=== PATIENT | female | born 1955 | race Caucasian/White ===

== ENCOUNTER 2017-08-26 07:06 | Day surgery (SDC) | payer OTHER ==
[~2017-08-26 07:06] MED LIST: EPHEDrine SULFATE 50 MG/5 ML SYG; SUCCINYLCHOLINE CHLORIDE 100 MG/5 ML SYG IV
[2017-08-26] MEDS ORDERED: BUPIVACAINE 0.75% (MPF) 10 ML INJ (07:55)
[2017-08-26] MEDS ORDERED: LIDOCAINE 1% (MPF) 10 ML INJ (07:56)
[2017-08-26] MEDS ORDERED: EPINEPHrine 1 MG INJ (07:56)
[2017-08-26] MEDS ORDERED: LIDOCAINE 2% (SDV) 5 ML INJ (07:56)
[2017-08-26] MEDS ORDERED: TIMOLOL 0.5% 5 ML OPH (07:56)
[2017-08-26] MEDS: MOXIFLOXACIN 0.5% 3 ML OPH OPER (08:05)
[2017-08-26] MEDS: PHENYLephrine 10% 5 ML OPH OPER (08:06)
[2017-08-26] MEDS: NEPAFENAC 0.1% 3 ML OPH OPER (08:06)
[2017-08-26] MEDS: CYCLOPENTOLATE 2% 2 ML OPH OPER (08:06)
[2017-08-26] MEDS ORDERED: SODIUM BICARBONATE (IV ADD) 50 ML (08:18)
[2017-08-26] MEDS ORDERED: MIDAZOLAM 1 MG/ML 2 ML INJ (09:11)
[2017-08-26] MEDS ORDERED: PROPOFOL 20 ML (09:11)
[2017-08-26] MEDS ORDERED: LIDOCAINE 1% (MDV) 20 ML INJ (09:11)
[2017-08-26] MEDS ORDERED: ROCURONIUM 50 MG INJ (09:12)
[2017-08-26] MEDS ORDERED: METOCLOPRAMIDE 10 MG INJ (09:30)
[2017-08-26] MEDS ORDERED: ONDANSETRON 4 MG INJ (09:30)
[2017-08-26] MEDS ORDERED: FAMOTIDINE 20 MG INJ (09:30)
[2017-08-26] MEDS ORDERED: DEXAMETHASONE 4 MG/ML 1 ML INJ (09:30)
[2017-08-26] MEDS ORDERED: PHENYLephrine (100 MCG/ML) 5ML SYG ×2 (09:42→09:49)
[2017-08-26] MEDS: TIMOLOL 0.5% 5 ML OPH RIGHT EYE (09:56)
[2017-08-26] MEDS ORDERED: SUGAMMADEX SODIUM 200 MG/2 ML VIAL IV ×2 (09:57→09:58)
[2017-08-26] MEDS ORDERED: MEPERIDINE 25 MG INJ IV (10:30)
[2017-08-26] MEDS ORDERED: FENTAnyl 50 MCG/ML VIAL IV ×2 (10:30)
[2017-08-26] MEDS: FENTAnyl 50 MCG/ML VIAL IV (10:36)
[2017-08-26] MEDS: ONDANSETRON 4 MG INJ IV (10:37)
[2017-08-26] MEDS: ALBUTEROL 0.083% (NEB) 2.5 MG/3 ML AMP HHN (10:43)
== END 2017-08-26 12:12 | disposition home or self-care (01) ==
LOC: SDS 07:06
DX: H25.11 Age-related nuclear cataract, right eye (principal); E11.9 Type 2 diabetes mellitus without complications; I10 Essential (primary) hypertension; E78.5 Hyperlipidemia, unspecified
CPT/HCPCS: 66984; 82962; 94664